=== PATIENT | female | born 1935 | race Caucasian/White ===

== ENCOUNTER 2018-01-08 07:52 | Day surgery (SDC) | payer OTHER ==
[2018-01-03 09:51] VITALS: BP 145/83
[~2018-01-08] VITALS: Ht 163.8 cm; Wt 56.7 kg
[~2018-01-08 07:52] MED LIST: AMLO5TAB2 PO; BENA10TA2 PO; CA C1TAB60 PO; MULT-516 PO
[2018-01-08] MEDS ORDERED: LACTATED RINGERS 1,000 ML IV SCH ×2 (08:09→08:16)
[2018-01-08] MEDS ORDERED: LIDOCAINE-MPF 1%, 2ML ONE (08:19)
[2018-01-08] MEDS ORDERED: LIDOCAINE-MPF 1%, 2ML INFIL ONE (08:30)
[2018-01-08] MEDS ORDERED: LAMOTIL PO (08:46)
[2018-01-08 08:47] VITALS: BP 145/83
[2018-01-08] MEDS ORDERED: PROPOFOL 10 MG/ML, 20ML ONE (09:55)
== END 2018-01-08 12:00 | disposition home or self-care (01) ==
LOC: OUT 07:52
PROVIDERS: ATTEND Internal Medicine Gastroenterology
DX: A04.72 Enterocolitis due to Clostridium difficile, not specified as recurrent (principal); I10 Essential (primary) hypertension; Z85.3 Personal history of malignant neoplasm of breast; Z98.890 Other specified postprocedural states; Z88.0 Allergy status to penicillin
CPT/HCPCS: 44705; 93005; G0455; J2704; J3490; J7120